=== PATIENT | female | born 1950 ===

== ENCOUNTER 2021-04-07 05:50 | Day surgery (SDC) | payer OTHER ==
[~2021-04-07 05:50] MED LIST: LEVOTHYROXINE25 MCG PO; LIPITOR20 MG PO; PLAVIX75 MG PO; SINGULAIR10 MG PO; TOPROL XL50 M1 PO; ZESTRIL5 MG PO
[2021-04-07] MEDS ORDERED: MACROBID 100 M100 MG PO (11:24)
[2021-04-07] MEDS ORDERED: ULTRACET PO (11:25)
== END 2021-04-07 15:10 | disposition home or self-care (01) ==
LOC: CIR.AMB 05:50
PROVIDERS: ATTEND Obstetrics & Gynecology Gynecology
DX: N81.11 Cystocele, midline (principal); Z20.822 Contact with and (suspected) exposure to COVID-19